=== PATIENT | female | born 1950 | race Caucasian/White ===

== ENCOUNTER 2019-09-29 15:13 | Outpatient (CLI) | payer MEDICARE, MEDICAID, SELFPAY ==
--- NOTE | 2019-09-29 15:31 | MM_ITS ---
WS: [id number] BILATERAL SCREENING DIGITAL MAMMOGRAM WITH CAD HISTORY: SCREENING COMPARISON: 08/22/2016, 08/08/2016 Bilateral CC and MLO views submitted. Computer aided detection analyzed. Breast composition: There are scattered areas of fibroglandular density. No suspicious masses, microc alcifications or architectural distortion. Biopsy clip 3:00 axis of the LEFT breast. The nodule is st ill evident with no increase in size. No suspicious masses or calcifications. MM/[place] [id number] IMPRESSION: BI-RADS: 2-Benign FOLLOW UP: 1 Year Follow-up
--- NOTE | 2019-09-29 16:05 | XR_ITS ---
WS: [id number] SCREENING DEXA SCAN [employer] CLINICAL INFORMATION: POSTMENOPAUSAL STATUS COMPARISON: September 29, 2019 FINDINGS: The L1-L4 bone mineral density measures 1.037 g/cm2. This corresponds to a T score score of -1.2 and Z score of 0.3. Left femoral neck bone mineral density measures 0.836 g/cm2. This corresponds to a T score of -1.4 an d Z score of 0.0. Right femoral neck bone mineral density measures 0.767 g/cm2. This corresponds to a T score -1.9of an d Z score of -0.5. Mean femoral neck bone mineral density measures 0.801 g/cm2. This corresponds to a T score of -1.6 an d Z score of -0.3. XR/XR DEXA axial skeleton* [id number] IMPRESSION: Osteopenia Patient's FRAX calculated 10 year probability for major osteoporotic fracture i s 11.5 % and osteoporotic hip fracture is 2.2%.
== END 2019-09-29 15:14 | disposition home or self-care (01) ==
PROVIDERS: PCP Electrodiagnostic Medicine; Visit Provider Electrodiagnostic Medicine
DX: Z12.31 Encounter for screening mammogram for malignant neoplasm of breast (principal); Z78.0 Asymptomatic menopausal state; M85.89 Other specified disorders of bone density and structure, multiple sites
CPT/HCPCS: 77067; 77080

== ENCOUNTER 2021-04-25 15:17 | Outpatient (CLI) | payer MEDICARE, MEDICAID, SELFPAY ==
--- NOTE | 2021-04-25 15:24 | MM_ITS ---
WS: [id number] SCREENING DIGITAL MAMMOGRAM WITH CAD HISTORY: SCREENING COMPARISON: 08/08/2016, 09/29/2019 Bilateral CC and MLO views submitted. Computer aided detection analyzed. Breast composition: There are scattered areas of fibroglandular density. There is a lobulated asymmet ry in the anterior to middle RIGHT breast lateral to the nipple. This has been present on prior studi es but appears slightly larger and more masslike today. Not definitely seen on the lateral projection . Biopsy clip in the LEFT breast at 9:00 with an adjacent mass. This mass is stable. Benign calcifica tions in each breast. MM/[place] [id number] IMPRESSION: BI-RADS: 0-Incomplete: Need additional imaging evaluation FOLLOW UP: Need Additional Imaging RIGHT breast: Spot compression views (CC and MLO). True ML. Ultrasound to follo w if abnormality persists.
== END 2021-04-25 15:18 | disposition home or self-care (01) ==
PROVIDERS: PCP Electrodiagnostic Medicine; Visit Provider Electrodiagnostic Medicine
DX: Z12.31 Encounter for screening mammogram for malignant neoplasm of breast (principal)
CPT/HCPCS: 77067

== ENCOUNTER 2021-05-08 07:42 | Outpatient (CLI) | payer MEDICARE, MEDICAID, SELFPAY ==
--- NOTE | 2021-05-08 07:48 | US_ITS ---
WS: [id number] ADDITIONAL VIEWS RIGHT BREAST RIGHT breast ultrasound, limited HISTORY: RIGHT BREAST MASS COMPARISON: 04/25/2021, 09/29/2019 and 08/08/2016 Compression views right CC and MLO projection. True ML also submitted. There are several asymmetries in the anterior RIGHT breast. These are predominantly posterior to the nipple and to the lateral aspe ct of the breast. Some of these are present on prior studies and some of these asymmetries correspond to moles. Very similar appearance as compared to the 2017 study. RIGHT breast ultrasound, limited ultrasound is directed to the upper outer quadrant of the RIGHT justo st at a anterior to middle depth. No suspicious masses are identified. No shadowing. US/US breast RT limited* [id number] IMPRESSION: BI-RADS: 3-Probably Benign FOLLOW-UP: 6 Month Follow-up The asymmetries are very minimally changed as compared to the prior examination s. I suspect this is probably due to different positioning. No abnormality was noted by ultrasound. Suggest 6 month follow-up of the RIGHT breast only and pos sible ultrasound if necessary after the mammogram. Continued evaluation for con firmation of stability.
== END 2021-05-08 07:43 | disposition home or self-care (01) ==
LOC: RADSHAW 07:45
PROVIDERS: PCP Electrodiagnostic Medicine; Visit Provider Electrodiagnostic Medicine
DX: N63.10 Unspecified lump in the right breast, unspecified quadrant (principal)
CPT/HCPCS: 76642; 77065

== ENCOUNTER 2021-12-12 10:15 | Outpatient (CLI) | payer MEDICARE, MEDICAID, SELFPAY ==
--- NOTE | 2021-12-12 10:24 | MM_ITS ---
WS: [id number] DIAGNOSTIC RIGHT DIGITAL TOMOSYNTHESIS MAMMOGRAPHY WITH CAD. HISTORY: Six-month follow-up Asymmetries seen on 04/25/2021. COMPARISON: 05/08/2021, 04/25/2021 and 09/29/2019 Technique: CC, MLO and ML views. Breast composition: There are scattered areas of fibroglandular density. The asymmetries in the ante rior RIGHT breast are much less conspicuous as compared to prior studies. There is no distortion. No persistent abnormality. MM/[place] [id number] IMPRESSION: BI-RADS: 2-Benign FOLLOW UP: See Report Return to annual screening mammography. The asymmetries have resolved and are l ess conspicuous.
== END 2021-12-12 10:16 | disposition home or self-care (01) ==
LOC: RAD 10:16
PROVIDERS: PCP Electrodiagnostic Medicine; Visit Provider Electrodiagnostic Medicine
DX: R92.8 Other abnormal and inconclusive findings on diagnostic imaging of breast (principal)
CPT/HCPCS: 77061

== ENCOUNTER 2024-01-23 11:09 | Inpatient (IN) | payer MEDICARE, MEDICAID, SELFPAY ==
[2024-01-23] VITALS (7 sets, daily range): BP systolic 93–145; BP diastolic 52–87; PULSE 68–98; RESP 16–18; TEMP 36.1–37; O2SAT 94–96; BMI 28.3
--- NOTE | 2024-01-23 11:39 | XR_ITS ---
WS: [id number] Portable AP upright chest, 01/23/2024 Clinical Data: weakness Comparison: Portable chest, 08/10/2017 Findings: No nodules, masses or effusions are seen. The heart is normal. The pulmonary vascularity is not increased. No pneumonia or pneumothorax is seen. The aortic arch and descending thoracic aorta s how tortuosity. The left diaphragm is elevated but unchanged. XR/XR chest 1V portable [id number] Impression: Atherosclerosis.
--- NOTE | 2024-01-23 11:39 | CT_ITS ---
WS: [email or web address] CT HEAD NONCONTRAST HISTORY: weakness TECHNIQUE: Contiguous axial imaging performed through the brain. Bone and soft tissue windows. Sagitt al and coronal reformats reviewed. All CT scans at [facility] use at least one of these dose optimization techniques: automated exposure control; mA and/or kV adjustment per patient size (includ es targeted exams where dose is matched to clinical indication); or iterative reconstruction. DLP: 1733.48 mGy.cm COMPARISON: 08/10/2017 No acute intracranial hemorrhage, midline shift or mass effect. Mild symmetric atrophy and small vessel disease. There are tiny lacunar infarcts at the rosales-white ma tter junction of the RIGHT frontal and parietal lobes which are unchanged. No large territory infarct . Ventricles: Normal size with no hydrocephalus. Paranasal sinuses: Secretions in the LEFT sphenoid sinus. Mastoid air cells: Well pneumatized. Calvarium and scalp: Skull is intact with no soft tissue edema or swelling. CT/CT head wo con* [id number] IMPRESSION: 1. No acute intracranial hemorrhage or edema. 2. Stable volume loss and atrophy and small vessel disease.
--- NOTE | 2024-01-23 11:39 | CT_ITS ---
WS: [id number] CT LUMBAR SPINE, noncontrast. HISTORY: fall TECHNIQUE: Contiguous 2.0 mm axial imaging are performed. Sagittal and coronal reformats are submitte d and reviewed. All CT scans at [facility] use at least one of these dose optimization techni ques: automated exposure control; mA and/or kV adjustment per patient size (includes targeted exams w here dose is matched to clinical indication); or iterative reconstruction. IV contrast: None DLP: 1733.48 mGy.cm COMPARISON: None available. Mild S shaped curvature lumbar spine and increased lordosis. Acute biconcave compression fracture of L1 without retropulsion. Fracture lines are noted extending v ertically and horizontally throughout the vertebral body. Approximately 30% loss of height. No additi onal acute fractures identified. Facet joints remain normally aligned. T12-L1: Partially calcified central disc protrusion. Mild encroachment upon the ventral thecal sac. M ild RIGHT subarticular recess and foraminal stenosis. L1-2: Mild facet arthritis. No stenosis. L2-3: Asymmetric disc bulging to the RIGHT. Broad-based RIGHT foraminal and extraforaminal disc protr usion. Disc encroaches upon the RIGHT lateral thecal sac. Mild central, RIGHT subarticular recess and bilateral foraminal stenosis. L3-4: Mild annular disc bulging with facet and ligamentum flavum hypertrophy. LEFT foraminal disc pro trusion. Mild central, bilateral subarticular recess and LEFT foraminal stenosis. L4-5: Diffuse annular disc bulging with osteophytic ridging and marked facet arthritis. Mild central, bilateral subarticular recess and neural foraminal stenosis. L5-S1: Osteophytic ridging. No significant stenosis. Aortic calcification. Incompletely visualized calcification in the LEFT upper abdomen may be associat ed with the adrenal gland. CT/CT lumbar spine wo con* [id number] IMPRESSION: 1. Acute biconcave L1 compression fracture by 30%. No retropulsion. No cord co mpression. 2. Multilevel areas of mild to moderate stenosis and facet joint arthritis. 3. No additional fractures.
--- NOTE | 2024-01-23 11:40 | ECG_ITS ---
[facility] Date: 2024-01[facility]23 Pat Name: Vania Sarkar Department: Room: Gender: Female [employer] Tender: : 1950 Requested By: Goldy Malave Order Number: [id number] Reading MD: HAJA RAMIREZ Measurements Intervals [place] Rate: 80 P: 77 IL: 148 QRS: 26 QRSD: 96 T: 38 QT: 388 QTc: 449 Interpretive Statements SINUS RHYTHM WITH SINUS ARRHYTHMIA MODERATE ST DEPRESSION [0.05+ mV ST DEPRESSION] Compared to ECG 08/10/2017 11:14:27 No significant changes Electronically Signed On 01-24-2024 18:10:37 CDT by HAJA RAMIREZ [email or web address]
--- NOTE | 2024-01-23 11:43 | ED_ITS ---
HPI - Fall 2 General: Chief Complaint: Fall Stated Complaint: Keeps falling down Time Seen by Provider: 01/23/24 11:28 Source: patient Mode of arrival: ambulatory Limitations: no limitations History of Present Illness: 73-year-old female's been having increas ing weakness specially last 2 days family states she has had multiple falls complaints of back pain from one of the falls. He states she is have a hard time ambulating due to her severe weakness denies any vomiting or diarrhea. Associated symptoms-after fall: Denies abdominal pain, chest pain, headache(s) or neck pain Related Data Home Medications Medication Instructions Recorded Confirmed atorvastatin 20 mg tablet 20 mg PO QPM 01/23/24 01/23/24 dapagliflozin propanediol 10 mg 10 mg PO DAILY 01/23/24 01/23/24 tablet (Farxiga) glimepiride 2 mg tablet 2 mg PO DAILY 01/23/24 01/23/24 metformin 1,000 mg tablet 1,000 mg PO BID 01/23/24 01/23/24 Allergies Allergy/AdvReac Type Severity Reaction Status Date / Time quinine Allergy ALGY-Rash Verified 01/23/24 11:27 Review of Systems 2 Const: Reports: fatigue; Denies: fever(s), chills, body aches or change in appetite Eyes: Denies: blurry vision or eye discomfort ENMT: Denies: throat pain or dental pain Card: Denies: chest pain Resp: Denies: dyspnea GI: Denies: abdominal pain, nausea, vomiting or diarrhea Musc: Reports: back pain; Denies: neck pain Skin/Breast: Denies: rash Neuro: Denies: headache(s) Physical Exam 2 Const: COMMON NORMALS: patient oriented x3 GENERAL APPEARANCE: ill appearing HENMT: COMMON NORMALS: normocephalic and atraumatic HEAD & SCALP: n ormocephalic and atraumatic Eye: COMMON NORMALS: Equal, round and reactive pupils present and EOMs intact bilaterally PUPIL: Yes Equal, round and reactive pupils present Neck/C-Spine: COMMON NORMALS: full ROM and supple Chest: COMMONS NORMALS: normal inspection of the chest and normal palpation of entire chest wall Resp: COMMON NORMALS: normal respiratory effort, No retractions, No use of accessory muscles and clear to auscultation bilaterally AUSCULTATION: clear to auscultation bilaterally Cardio: COMMON NORMALS: regular rate, regular rhythm and No murmurs present (Cardio) RATE: regular rate RHYTHM: regular rhythm GI: COMMON NORMALS: Normal to inspection, nondistended, normoactive bowel sounds present, Soft to palpation, non-tender and no masses PALPATION: Yes Soft to palpation Extremity: COMMON NORMALS: normal to inspection and full ROM Neuro: COMMON NORMALS: patient oriented x3, moves all extremities and no focal motor deficits Psych: COMMON NORMALS: mental status grossly normal, Normal thought process present and cooperative THOUGHT PROCESS: Normal thought process present Skin: COMMON NORMALS: no rashes or lesions noted and no wounds GENERAL SKIN EXAM: no rashes or lesions noted Course 2 Vital Signs: Vital signs: Vital Signs Temperature 96.9 F L 01/23/24 11:22 Pulse Rate 82 01/23/24 11:22 Respiratory Rate 17 01/23/24 11:22 Blood Pressure 109/55 01/23/24 11:22 MDM - Fall Medical Decision Making Patient presents here with weakness along with some slight confusion head CT here is normal she does have dehydration acute kidney injury UTI she has no signs of sepsis did give her antibiotics and fluids will admit at this time Medical Records I reviewed the patient's medical records. Lab Data I reviewed the patient's lab results. 01/23/24 11:49 01/23/24 11:49 Radiology Impressions Chest X-Ray 01/23/24 11:39 Impression: Atherosclerosis. Head CT 01/23/24 11:39 IMPRESSION: 1. No acute intracranial hemorrhage or edema. 2. Stable volume loss and atrophy and small vessel disease. Lumbar Spine CT 01/23/24 11:39 IMPRESSION: 1. Acute biconcave L1 compression fracture by 30%. No retropulsion. No cord compression. 2. Multilevel areas of mild to moderate stenosis and facet joint arthritis. 3. No additional fractures. Laboratory Results WBC 15.59 10^3/uL (3.29-11.43) H 01/23/24 11:49 RBC 5.30 10^6/uL (3.85-5.65) 01/23/24 11:49 Hgb 16.50 g/dL (11.27-16.99) 01/23/24 11:49 Hct 49.4 % (36-47) H 01/23/24 11:49 MCV 93.2 fl (85-98) 01/23/24 11:49 MCH 31.1 pg (27-33) 01/23/24 11:49 MCHC 33.4 g/dL (30-55) 01/23/24 11:49 RDW 13.0 % (12.1-15.1) 01/23/24 11:49 Plt Count 304 10^3/cmm (157-399) 01/23/24 11:49 MPV 9.6 fL (7.4-10.4) 01/23/24 11:49 Neut % (Auto) 90.3 % 01/23/24 11:49 Lymph % (Auto) 3.0 % 01/23/24 11:49 [place] % (Auto) 6.0 % 01/23/24 11:49 Eos % (Auto) 0.0 % 01/23/24 11:49 Baso % (Auto) 0.2 % 01/23/24 11:49 Neut # (Auto) 14.08 10^3/uL (1.8-7.7) H 01/23/24 11:49 Lymph # (Auto) 0.5 10^3/uL (0.8-4.8) L 01/23/24 11:49 [place] # (Auto) 0.9 10^3/uL (0.2-0.9) 01/23/24 11:49 Eos # (Auto) 0.0 10^3/uL (0.0-0.8) 01/23/24 11:49 Baso # (Auto) 0.0 10^3/uL (0.0-0.1) 01/23/24 11:49 Nucleated RBC % (auto) 0 % 01/23/24 11:49 Nucleated RBCs # 0.0 /100WBC 01/23/24 11:49 Sodium 135 mmol/L (136-145) L 01/23/24 11:49 Potassium 3.5 mmol/L (3.5-5.1) 01/23/24 11:49 Chloride 90 mmol/L (98-107) L 01/23/24 11:49 Carbon Dioxide 24 mmol/L (22-29) 01/23/24 11:49 Anion Gap 24.5 (5-19) H 01/23/24 11:49 BUN 96 mg/dL (8-23) H* 01/23/24 11:49 Creatinine 1.8 mg/dL (0.5-0.9) H 01/23/24 11:49 GFR Calculation Not Reportable 01/23/24 11:49 Glucose 207 mg/dL (65-115) H 01/23/24 11:49 Calculated Osmolality 316 mOsm/kg (285-295) H 01/23/24 11:49 Calcium 9.1 mg/dL (8.5-10.5) 01/23/24 11:49 Magnesium 2.2 mg/dL (1.7-2.3) 01/23/24 11:49 Total Bilirubin 0.8 mg/dL (0.15-1.2) 01/23/24 11:49 AST 23 U/L (0-32) 01/23/24 11:49 ALT 15 U/L (0-33) 01/23/24 11:49 Alkaline Phosphatase 129 U/L (35-105) H 01/23/24 11:49 NT-Pro-B Natriuret Pep 351 pg/mL (0-450) 01/23/24 11:49 Total Protein 7.8 g/dL (6.6-8.7) 01/23/24 11:49 Albumin 4.2 g/dL (3.5-5.2) 01/23/24 11:49 Globulin 3.6 g/dL (1.3-4.6) 01/23/24 11:49 TSH 1.37 uIU/mL (0.27-4.20) 01/23/24 11:49 Urine Color Yellow (Yellow) 01/23/24 13:01 Urine Appearance Cloudy (CLEAR) A 01/23/24 13:01 Urine pH 5.0 (5-7) 01/23/24 13:01 Ur Specific [place] 1.023 (1.005-1.030) 01/23/24 13:01 Urine Protein 1+ (Negative) A 01/23/24 13:01 Urine Glucose (UA) 3+ (Normal) H 01/23/24 13:01 Urine Ketones 1+ (Negative) H 01/23/24 13:01 Urine Blood Negative (Negative) 01/23/24 13:01 Urine Nitrate Negative (Negative) 01/23/24 13:01 Urine Bilirubin Negative (Negative) 01/23/24 13:01 Urine Urobilinogen 1.0 mg/dL (Negative) 01/23/24 13:01 Ur Leukocyte Esterase Trace (Negative) A 01/23/24 13:01 Urine RBC 0-2 /hpf (0-2) 01/23/24 13:01 Urine WBC 21-50 /hpf (0-5) H 01/23/24 13:01 Ur Squamous Epith Cells 6-10 /hpf (0-5) 01/23/24 13:01 Amorphous Sediment Not Reportable 01/23/24 13:01 Urine Bacteria 4+ /hpf (NONE) H 01/23/24 13:01 Hyaline Casts 18.18 /lpf 01/23/24 13:01 Urine Mucus Trace /hpf 01/23/24 13:01 All radiology interpretation(s) finalized by discharge Discharge Plan Discharge Patient Disposition: Admitted As Inpatient Clinical Impression: Acute kidney injury, Acute dehydration, Acute cystitis Condition: Stable Prescriptions: No Action atorvastatin 20 mg tablet 20 mg PO QPM glimepiride 2 mg tablet 2 mg PO DAILY metformin 1,000 mg tablet 1,000 mg PO BID dapagliflozin propanediol [Farxiga] 10 mg tablet 10 mg PO DAILY Referrals: Kyle Conrad DO [Primary Care Provider] - Coding Level of Care Code ED Registered Medical Transcriptionist for Juana Hagen
[2024-01-23 11:54] LABS: Basophils % 0.2 %; Hematocrit 49.4 % (36-47); Lymphocytes # 0.5 10^3/uL (0.8-4.8); Mean Corpuscular HGB Conc 33.4 g/dL (30-55); Mean Corpuscular Hemoglobin 31.1 pg (27-33); Mean Corpuscular Volume 93.2 fl (85-98); Mean Platelet Volume 9.6 fL (7.4-10.4); Monocytes # 0.9 10^3/uL (0.2-0.9); Neutrophils # 14.08 10^3/uL (1.8-7.7); Neutrophils % 90.3 %; Nucleated Red Blood Cells % 0 %; Platelet Count 304 10^3/cmm (157-399); White Blood Count 15.59 10^3/uL (3.29-11.43)
[2024-01-23 12:34] LABS: Alanine Aminotransferase 15 U/L (0-33); Albumin Level 4.2 g/dL (3.5-5.2); Alkaline Phosphatase 129 U/L (35-105); Anion Gap 24.5 (5-19); Aspartate Amino Transferase 23 U/L (0-32); Calcium 9.1 mg/dL (8.5-10.5); Carbon Dioxide 24 mmol/L (22-29); Chloride 90 mmol/L (98-107); Globulin 3.6 g/dL (1.3-4.6); Glucose 207 mg/dL (65-115); Magnesium 2.2 mg/dL (1.7-2.3); NT Pro B Type Natriuretic Pept 351 pg/mL (0-450); Osmolality Calculated 316 mOsm/kg (285-295); Potassium 3.5 mmol/L (3.5-5.1); Sodium 135 mmol/L (136-145); Thyroid Stimulating Hormone 1.37 uIU/mL (0.27-4.20); Total Bilirubin 0.8 mg/dL (0.15-1.2); Total Protein 7.8 g/dL (6.6-8.7)
[2024-01-23 12:35] LABS: Blood Urea Nitrogen 96 mg/dL (8-23)
[2024-01-23] MEDS: sodium chloride 0.9% 1,000 ML 999 ML IV (13:00)
[2024-01-23 13:11] LABS: Bilirubin Urine Negative (Negative); Blood Urine Negative (Negative); Glucose Urine UA 3+ (Normal); Ketones Urine 1+ (Negative); Leukocyte Esterase Urine Trace (Negative); Nitrate Urine Negative (Negative); Protein Urine 1+ (Negative); Specific Gravity, Urine 1.023 (1.005-1.030); Urine Appearance Cloudy (CLEAR); Urine Color Yellow (Yellow)
[2024-01-23 13:14] LABS: Add Urine Microscopic? YES; Bacteria Urine 4+ /hpf; Hyaline Casts Urine 18.18 /lpf; RBC Urine 0-2 /hpf (0-2); WBC Urine 21-50 /hpf (0-5)
[2024-01-23 13:25] LABS: Add Urine Culture? Yes; Mucus Urine TRACE /hpf; UA Slide Review UA Slide Review Perf
--- NOTE | 2024-01-23 13:52 | CT_ITS ---
WS: [id number] CT ABDOMEN AND PELVIS NONCONTRAST HISTORY: rhiannon, ?obs nephropathy TECHNIQUE: Imaging performed through the abdomen and pelvis. Coronal and sagittal reformats are submi tted. All CT scans at [facility] use at least one of these dose optimization techniques: auto mated exposure control; mA and/or kV adjustment per patient size (includes targeted exams where dose is matched to clinical indication); or iterative reconstruction. DLP: 443.67 mGy.cm COMPARISON: None available. Lower thorax: Hyperexpanded lung bases. Bilateral lower lobe calcifications. Normal size heart. Liver: Normal size liver. No mass or bile duct dilatation. Gallbladder: Normal gallbladder. No pericholecystic fluid or cholelithiasis. No gallbladder wall thic kening. Pancreas: Normal size and attenuation. Normal pancreatic duct. No pancreatitis or mass. Spleen: Normal. Adrenal glands: Normal. No mass. Right kidney: Mild atrophy. No obstruction. Left kidney: Mild atrophy with no obstruction. Low-attenuation masses within the LEFT kidney cannot b e further characterized. There is no obstruction. Aorta: Mild atherosclerosis abdominal aorta with no aneurysm. Irregular curvilinear calcification in the LEFT upper abdomen measures 11 mm. This is probably a small calcified splenic artery aneurysm. No free fluid, intraperitoneal air or significant lymphadenopathy. GI tract: Normal noncontrast imaging of the stomach, small bowel and colon. No obstruction or wall th ickening. Normal appendix. Abdominal wall: Negative. No hernia. Pelvis: No free fluid. Nondistended urinary bladder. Mckinley catheter is present in the urinary bladder . There is also small amount of air in the bladder from the catheter placement. Osseous structures: Reidentified is the acute biconcave L1 compression fracture without retropulsion. CT/CT abdomen pelvis wo con [id number] IMPRESSION: 1. No acute abdominal or pelvic abnormalities. 2. No renal obstruction. 3. 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 4. Atherosclerosis aorta, mild. 5. No ascites or adenopathy. 6. Indeterminate LEFT renal masses. Cannot be further characterized without IV contrast.
--- NOTE | 2024-01-23 13:54 | P.HP_ITS ---
Providers/Chief Complaint 2 Primary Care Provider: Kyle Conrad DO Chief Complaint: Keeps falling down History of Present Illness Vania Sarkar is a 73 year old female with past medical history of hypertension not on antihypertensive because of hypotension and presyncope, type 2 diabetes mellitus was brought in today by her son because of recurrent episodes of fall, confusion specially on standing up from sitting position worsening over last few weeks. As per the son patient has had multiple falls recently. Patient has been having diarrhea as well for last few weeks which has been getting worse. Patient lives with her son. On examination is laying comfortably in bed with some forgetfulness but no current confusion, slow to respond but patient is alert and oriented to self, being in the hospital, year, address, date of , son's name but not sure why she is in the hospital. She denies any nausea, vomiting, headache, abdominal pain but does complain of occasional dysuria. As per the nursing staff in the ER on going from bed to the toilet she did have episode of dizziness and confusion. Review of Systems 2 General: Reports: 10 or more systems reviewed and unremarkable except in HPI and below Const: Denies: fever(s), chills, body aches, change in appetite, change in weight, malaise, night sweats, diaphoresis, change in sleep pattern, daytime sleepiness or snoring Eyes: Denies: change in vision, blurry vision, photophobia, eye discomfort or eye discharge ENMT: Denies: throat pain, enlarged tonsils, hoarseness, mouth pain, oral sores, dry mouth, tinnitus, nasal congestion or post nasal drip Card: Denies: chest pain, palpitations, irregular heart rhythm, edema, swelling of feet/ankles, lightheadedness, syncope, pre-syncope, dyspnea on exertion, orthopnea, leg pain with exertion or acrocyanosis Resp: Denies: dyspnea, productive cough, non-productive cough, wheezing, stridor, pain on inspiration, change in phlegm color, hemoptysis or chest congestion GI: Denies: abdominal pain, nausea, vomiting, hematemesis, coffee ground emesis, dysphagia, heartburn, diarrhea, constipation, bloating, GI cramping, change in bowel habits, pain on defecation, hematochezia or melena : Denies: flank pain, dysuria, urinary frequency, urinary urgency, urinary hesitancy, nocturia or hematuria Musc: Denies: neck pain, back pain, extremity pain, joint pain, joint swelling, joint redness, joint stiffness or limited range of motion Neuro: Denies: headache(s), numbness in extremities, weakness in extremities, sensory changes, lack of coordination, difficulty walking, frequent falls, dizziness, vertigo, confusion, Slurred speech present, difficulty communicating thoughts or seizure-like activity Psych: Denies: anxiety, depression, mood swings, panic attacks, hopelessness or irritability Endo: Denies: polyuria, polydipsia, tired all the time, cold intolerance, excessive sweating, flushing or heat intolerance Toan/Lymph: Denies: easy bruising or easy bleeding All/Imm: Denies: tongue swelling, facial swelling or acute wheezing Medications/Allergies Home Medications Medication Instructions Recorded Confirmed Last Taken Type atorvastatin 20 mg tablet 20 mg PO QPM 01/23/24 01/23/24 01/22/24 History dapagliflozin propanediol 10 mg 10 mg PO DAILY 01/23/24 01/23/24 01/22/24 History tablet (Farxiga) glimepiride 2 mg tablet 2 mg PO DAILY 01/23/24 01/23/24 01/22/24 History metformin 1,000 mg tablet 1,000 mg PO BID 01/23/24 01/23/24 01/22/24 History Allergies Allergy/AdvReac Type Severity Reaction Status Date / Time quinine Allergy ALGY-Rash Verified 01/23/24 11:27 PFSH Acute 2 PFSH: Medical History (Updated 01/23/24 @ 16:23 by Adolfo Adrian MD) Hypotension Hypertension Type 2 diabetes mellitus Social History (Updated 01/23/24 @ 16:23 by Adolfo Adrian MD) Smoking and tobacco/nicotine status: former use of tobacco/nicotine Alcohol intake: never Substance/Drug Use: never Caregiver/support person: Yes Lives independently: Yes Household members: family and children Housing: House Marital status: / Vitals/I&O/Wt Last Vital Signs Temp 96.9 F L 01/23/24 11:22 Pulse 82 01/23/24 11:22 Resp 17 01/23/24 11:22 BP 109/55 10/18/24 11:22 Weight last 48 hrs Weight 70.307 kg Physical Exam 2 Narrative: General: No acute distress, AO x3, dehydrated, forgetful HEENT: PERRLA, pupils bilaterally equal and reactive Chest: Normal vesicular breath sounds, no added sounds, equal good air entry bilaterally CVS: S1-S2 regular, no murmurs, no tachycardia, no gallops, no rubs Abdomen: Soft, nontender, no organomegaly, bowel sounds present, redness and periumbilical region Neuro: No focal deficits, no facial deformity, AO x3, power 5/5 in all limbs Data 01/23/24 11:49 01/23/24 11:49 A&P Assessment and plan (1) Fall: (2) Pre-syncope: (3) Acute dehydration: (4) Acute cystitis: (5) Acute kidney injury: (6) Type 2 diabetes mellitus: Plan 73-year-old female with history of hypertension, diabetes mellitus for whom antihypertensives were discontinued almost a year ago because of episodes of hypotension presents to the hospital with recurrent falls and dizziness on standing up with episodes of dysuria with possibility of episodes of diarrhea found to have acute kidney injury and uremia. Recurrent falls: Most likely in setting of UTI along with dehydration leading to episodes of presyncope and possible orthostatic hypotension. Check orthostatics. Physical therapy. Fall precaution. Check B12, folate, iron panel, TSH, cortisol level. Acute dehydration: Most likely in setting of poor oral intake. Start on IV fluids with normal saline at 75 cc/h. UTI: Symptoms of dysuria. UA consistent with UTI. No signs of sepsis Check procalcitonin, blood culture, urine culture, MRSA swab, lactate. Given concerns for diarrhea with possible cellulitis in periumbilical region for now we will switch to Zosyn from ceftriaxone. De-escalate as per culture studies. LUKE: Associated with uremia: Check urine lites, urine creatinine. CT abdomen pelvis to rule out obstructive nephropathy. Monitor BMP daily. IV fluid as above. Medical reconciliation done for nephrotoxic drugs. Questionable history of diarrhea: Could be in setting of metformin. Cannot rule out infectious cause. Stool studies if patient have diarrhea. For now continue with ceftriaxone as above. Cellulitis: Present in periumbilical region. Antibiotic as above. Nystatin powder. High anion gap metabolic acidosis: Patient does have history of type 2 diabetes mellitus with elevated blood sugars on presentation. DKA less likely though. Check ketones. If ketones are positive we will start on treatment for DKA. Type 2 diabetes mellitus: Hold of OHA. Sliding scale low-dose protocol. Check A1c. Hypertension: Goal blood pressure less than 140/90 mmHg. Concern for positive orthostatics. Check orthostatic every shift for now. Hold off on antihypertensive. CODE STATUS: Son will be the DPOA. Full code. Protonix OPD prophylaxis Heparin 5000 every 12 hourly for DVT prophylaxis Carb consistent diet Discharge plan: Discussed in detail with the patient and son over the phone. Patient would like to go back home if possible and would want to avoid sleep as much as possible. Will plan as per PT evaluation and clinical improvement during the course. Attestations 2 Medical Necessity Statement*: Admission for more than 2 midnights for management of weakness, presyncope leading to recurrent falls in setting of dehydration, acute kidney injury, UTI Diagnoses Fall [id number].XXXA Pre-syncope R55 Acute dehydration E86.0 Acute cystitis N30.00 Acute kidney injury N17.9 Type 2 diabetes mellitus E11.9
[2024-01-23 14:12] LABS: Amphetamines Screen Urine Negative (Negative); Barbiturates Screen Urine Negative (Negative); Benzodiazepines Screen Urine Negative (Negative); Cocaine Screen Urine Negative (Negative); Opiate Screen Urine Negative (Negative); PCP Screen Urine Negative (Negative); THC Screen Urine Negative (Negative)
[2024-01-23 14:19] LABS: Ketone (Acetest) Serum Negative (Negative)
[2024-01-23] MEDS: pantoprazole 40 mg SDV IVP (14:19)
[2024-01-23] MEDS: cefTRIAXone 1,000 mg SDV 1000 MG IVP (14:19)
[2024-01-23 14:21] LABS: Potassium, Radom Urine 44 mmol/L; Urine Random Chloride 18 mmol/L; Urine Random Sodium 18 mmol/L
[2024-01-23] MEDS: sodium chloride 0.9% 1,000 ML 75 ML IV (14:21)
[2024-01-23 14:29] LABS: Iron 109 ug/dL (37-145); Percent Saturation 33.8 % (20-50); Total Iron Binding Capacity 322 mcg/dl; Unsaturated Iron Binding 213 ug/dL (112-347)
[2024-01-23 14:46] LABS: Procalcitonin 0.12 ng/mL (0-0.5); Vitamin B12 364 pg/mL (232-1245)
[2024-01-23 16:16] LABS: Lactic Sepsis W/Reflex 1.3 mmol/L (0.5-2.2)
[2024-01-23] MEDS: heparin 5,000 unit/mL INJ 1 mL 5000 UNIT SUBCUT (16:26)
[2024-01-23 17:46] LABS: Glucose Point of Care 199 mg/dL (70-110)
[2024-01-23] MEDS: piperacillin-tazobactam 3.375 GM in sodium chloride 0.9% (plus) 50 ML IV (17:50)
[2024-01-23] MEDS: nystatin powder 30 gm Btl 1 APPLIC TOPICAL (17:50)
[2024-01-23] MEDS: insulin lispro 100 unit/1 mL SUBCUT ×2 (17:51→21:08)
[2024-01-23 17:56] LABS: MRSA PCR OZH (swab) NOT DETECTED (Not Detecte)
[2024-01-23 18:57] LABS: Urine Creatinine 136 mg/dL (28-217)
[2024-01-23 19:16] LABS: Eosinophil Urine No Eosinophils Seen; Urine Eosinophil Count 0 (0-0)
[2024-01-23 20:41] LABS: Glucose Point of Care 314 mg/dL (70-110)
[2024-01-24] VITALS (7 sets, daily range): BP systolic 96–134; BP diastolic 52–81; PULSE 71–96; RESP 16–18; TEMP 36.6–37.1; O2SAT 92–96; BMI 26.1
[2024-01-24] MEDS: piperacillin-tazobactam 3.375 GM in sodium chloride 0.9% (plus) 50 ML IV ×3 (01:15→16:42)
[2024-01-24] MEDS: heparin 5,000 unit/mL INJ 1 mL 5000 UNIT SUBCUT ×2 (03:51→14:22)
[2024-01-24 05:51] LABS: Basophils % 0.2 %; Eosinophils % 0.1 %; Hematocrit 46.5 % (36-47); Lymphocytes # 0.8 10^3/uL (0.8-4.8); Lymphocytes % 8.3 %; Mean Corpuscular HGB Conc 32.9 g/dL (30-55); Mean Corpuscular Hemoglobin 30.8 pg (27-33); Mean Corpuscular Volume 93.8 fl (85-98); Mean Platelet Volume 10.5 fL (7.4-10.4); Monocytes # 0.9 10^3/uL (0.2-0.9); Monocytes % 9.1 %; Neutrophils # 7.88 10^3/uL (1.8-7.7); Neutrophils % 81.7 %; Nucleated Red Blood Cells % 0 %; Platelet Count 249 10^3/cmm (157-399); Red Blood Count 4.96 10^6/uL (3.85-5.65); White Blood Count 9.65 10^3/uL (3.29-11.43)
[2024-01-24 06:10] LABS: Estmated Average Glucose 148; Hemoglobin A1C 6.8 % (4.0-6.0)
[2024-01-24 06:19] LABS: Alanine Aminotransferase 16 U/L (0-33); Alkaline Phosphatase 115 U/L (35-105); Calcium 8.6 mg/dL (8.5-10.5); Carbon Dioxide 27 mmol/L (22-29); Chloride 99 mmol/L (98-107); Chol HDL Ratio 2.76 mg/dL (0.0-4.40); Cholesterol 171 mg/dL (0-200); Creatinine Clr Calc Pharmacy 28.6232; Globulin 2.9 g/dL (1.3-4.6); Glucose 69 mg/dL (65-115); HDL Cholesterol 62 mg/dL (60-100); LDL Cholesterol Calculated 67 mg/dL (50-129); LDL HDL Ratio 1.08 RATIO (0.00-3.22); Magnesium 2.3 mg/dL (1.7-2.3); Osmolality Calculated 319 mOsm/kg (285-295); Phosphorus 2.9 mg/dL (2.5-4.5); Procalcitonin 0.11 ng/mL (0-0.5); Sodium 141 mmol/L (136-145); Total Bilirubin 0.7 mg/dL (0.15-1.2); Total Protein 6.9 g/dL (6.6-8.7); Triglycerides 208 mg/dL (0-150)
[2024-01-24 06:22] LABS: Aspartate Amino Transferase 24 U/L (0-32)
[2024-01-24 06:26] LABS: Blood Urea Nitrogen 92 mg/dL (8-23)
[2024-01-24 06:27] LABS: Folate Level 15.5 ng/mL (4.8-37.3)
[2024-01-24 06:34] LABS: Glucose Point of Care 93 mg/dL (70-110)
[2024-01-24 06:47] LABS: Cortisol Random 25.55 ug/dL (2.47-19.5)
[2024-01-24] MEDS: sodium chloride 0.9% 1,000 ML 75 ML IV ×2 (08:03→16:42)
[2024-01-24] MEDS: nystatin powder 30 gm Btl 1 APPLIC TOPICAL ×2 (08:03→16:42)
--- NOTE | 2024-01-24 09:44 | PC.NURSE ---
Pt states that she is in pain, but unable to rate it using a numerical scale. FACES SCALE 4 with movement. Pt denies need for pain medication.
[2024-01-24 11:53] LABS: Glucose Point of Care 265 mg/dL (70-110)
[2024-01-24] MEDS: insulin lispro 100 unit/1 mL SUBCUT ×2 (12:15→20:54)
[2024-01-24] MEDS: acetaminophen 325 mg Tablet 650 MG PO (12:15)
--- NOTE | 2024-01-24 13:33 | P.PN_ITS ---
Subjective 2 Subjective: No acute vents overnight. Today morning seen sitting up in chair. Patient denies any nausea, ting, headache. Looks slightly confused. Alert and oriented to self, being in the hospital, year.-Nursing staff having episodes of confusion on and off overnight. Vitals/I&O/Wt Last Vital Signs Temp 98.0 F 01/24/24 11:38 Pulse 74 01/24/24 11:38 Resp 16 01/24/24 11:38 BP 121/66 01/24/24 11:38 Pulse Ox 92 01/24/24 11:38 O2 Del Method Room Air 01/24/24 11:38 01/23/24 01/24/24 01/24/24 22:59 06:59 14:59 Intake Total 1530 / 1530 1530 / 3060 290 / 290 Output Total 500 / 500 200 / 700 Balance 1030 / 1030 1330 / 2360 290 / 290 Weight last 48 hrs Weight 64.728 kg Weight 64.728 kg Weight 70.307 kg Weight 70.307 kg Physical Exam 2 Narrative: General: No acute distress, AO x3, dehydrated, forgetful HEENT: PERRLA, pupils bilaterally equal and reactive Chest: Normal vesicular breath sounds, no added sounds, equal good air entry bilaterally CVS: S1-S2 regular, no murmurs, no tachycardia, no gallops, no rubs Abdomen: Soft, nontender, no organomegaly, bowel sounds present, redness and periumbilical region Neuro: No focal deficits, no facial deformity, AO x3, power 5/5 in all limbs Urinary Catheter Management: Mckinley: Cath Placed During This Visit: yes Reason for Continuing Indwelling Catheter: Other Urinary Catheter Date of Insertion: 01/23/24 Data 01/24/24 04:46 01/24/24 04:46 Micro: Microbiology 01/23/24 13:01 Urine Culture - Preliminary Urine,Clean Catch Gram Negative Rods 01/23/24 15:52 Blood Culture - Preliminary Blood SPECIMEN COLLECTED 01/23/24 15:50 Blood Culture - Preliminary Blood SPECIMEN COLLECTED 01/23/24 13:01 Bacterial Antigens - Final Urine Kidney A&P Assessment and plan (1) Fall: (2) Pre-syncope: (3) Acute dehydration: (4) Acute cystitis: (5) Acute kidney injury: (6) Type 2 diabetes mellitus: (7) Cognitive decline: Plan 73-year-old female with history of hypertension, diabetes mellitus for whom antihypertensives were discontinued almost a year ago because of episodes of hypotension presents to the hospital with recurrent falls and dizziness on standing up with episodes of dysuria with possibility of episodes of diarrhea found to have acute kidney injury and uremia. Recurrent falls: Most likely in setting of UTI along with dehydration leading to episodes of presyncope and possible orthostatic hypotension. Orthostatic so far negative. Continue to check every shift Physical therapy. Fall precaution. Appreciate B12, folate, iron panel, TSH, cortisol level. Acute dehydration: Most likely in setting of poor oral intake. Improving. Continue with IV fluids with normal saline at 75 cc/h. UTI: Symptoms of dysuria. UA consistent with UTI. No signs of sepsis Appreciate procalcitonin, MRSA swab negative. Follow-up blood culture, urine culture. Given concerns for diarrhea with possible cellulitis in periumbilical region for now we will continue with IV Zosyn. De-escalate as per culture results. LUKE: Associated with uremia: Improving. Creatinine down to 1.5. BUN slightly improving to 92. Appreciate urine lites, urine creatinine. CT abdomen pelvis to rule out obstructive nephropathy. Monitor BMP daily. IV fluid as above. Medical reconciliation done for nephrotoxic drugs. Does have hypokalemia today. Replace with 40 mg oral. Questionable history of diarrhea: No diarrhea since admission for now. Continue to monitor. Could be in setting of metformin. Cannot rule out infectious cause. Stool studies if patient have diarrhea. For now continue with ceftriaxone as above. Cellulitis: Present in periumbilical region. Antibiotic as above. Nystatin powder. High anion gap metabolic acidosis: Resolved. Patient does have history of type 2 diabetes mellitus with elevated blood sugars on presentation. Most likely in setting of dehydration. DKA less likely though. Ketones negative. Type 2 diabetes mellitus: Hold of OHA. Sliding scale low-dose protocol. A1c 6.8. Hypertension: Goal blood pressure less than 140/90 mmHg. Concern for positive orthostatics. Check orthostatic every shift for now. Hold off on antihypertensive. CODE STATUS: Son will be the DPOA. Full code. Protonix OPD prophylaxis Heparin 5000 every 12 hourly for DVT prophylaxis Carb consistent diet Appreciate Occupational Therapy recommendation and evaluation. Patient found to have cognitive decline. Discharge plan: Patient lives with her son. Son is also the DPOA. Discussed in detail with the patient and son over the phone. Patient would like to go back home if possible and would want to avoid sleep as much as possible. Will plan as per PT evaluation and clinical improvement during the course. Attestations 2 Medical Necessity Statement*: Requires further hospitalization for management of recurrent falls in setting of weakness in setting of UTI and poor oral intake leading to LUKE and uremia Diagnoses Fall [id number].XXXA Pre-syncope R55 Acute dehydration E86.0 Acute cystitis N30.00 Acute kidney injury N17.9 Type 2 diabetes mellitus E11.9 Cognitive decline R41.89
[2024-01-24] MEDS: pantoprazole 40 mg SDV IVP (14:22)
[2024-01-24] MEDS: potassium chloride ER 20 mEq Tablet 40 MEQ PO (14:22)
[2024-01-24 16:19] LABS: Glucose Point of Care 101 mg/dL (70-110)
[2024-01-24 20:39] LABS: Glucose Point of Care 306 mg/dL (70-110)
[2024-01-25] VITALS (8 sets, daily range): BP systolic 127–176; BP diastolic 62–78; PULSE 64–76; RESP 15–17; TEMP 36.4–37.1; O2SAT 94–97; BMI 26.7
[2024-01-25] MEDS: piperacillin-tazobactam 3.375 GM in sodium chloride 0.9% (plus) 50 ML IV ×3 (01:03→17:46)
[2024-01-25] MEDS: sodium chloride 0.9% 1,000 ML 75 ML IV ×2 (04:56→17:45)
[2024-01-25] MEDS: heparin 5,000 unit/mL INJ 1 mL 5000 UNIT SUBCUT ×2 (04:57→14:36)
[2024-01-25 06:21] LABS: Glucose Point of Care 99 mg/dL (70-110)
[2024-01-25 06:53] LABS: Basophils % 0.2 %; Eosinophils % 0.7 %; Hematocrit 39.6 % (36-47); Lymphocytes # 0.7 10^3/uL (0.8-4.8); Lymphocytes % 11.8 %; Mean Corpuscular HGB Conc 31.8 g/dL (30-55); Mean Corpuscular Hemoglobin 30.5 pg (27-33); Mean Corpuscular Volume 95.9 fl (85-98); Monocytes # 0.6 10^3/uL (0.2-0.9); Monocytes % 9.6 %; Neutrophils # 4.57 10^3/uL (1.8-7.7); Neutrophils % 77.2 %; Nucleated Red Blood Cells % 0 %; Platelet Count 186 10^3/cmm (157-399); Red Blood Count 4.13 10^6/uL (3.85-5.65); Red Cell Distribution Width 12.9 % (12.1-15.1); White Blood Count 5.92 10^3/uL (3.29-11.43)
[2024-01-25 07:21] LABS: Alanine Aminotransferase 13 U/L (0-33); Albumin Level 3.1 g/dL (3.5-5.2); Alkaline Phosphatase 86 U/L (35-105); Anion Gap 11.6 (5-19); Aspartate Amino Transferase 17 U/L (0-32); Blood Urea Nitrogen 53 mg/dL (8-23); Calcium 7.8 mg/dL (8.5-10.5); Carbon Dioxide 24 mmol/L (22-29); Chloride 110 mmol/L (98-107); Creatinine Clr Calc Pharmacy 48.2544; Globulin 2.3 g/dL (1.3-4.6); Glucose 106 mg/dL (65-115); Osmolality Calculated 309 mOsm/kg (285-295); Potassium 3.6 mmol/L (3.5-5.1); Sodium 142 mmol/L (136-145); Total Bilirubin 0.6 mg/dL (0.15-1.2); Total Protein 5.4 g/dL (6.6-8.7)
[2024-01-25] MEDS: nystatin powder 30 gm Btl 1 APPLIC TOPICAL ×2 (08:27→17:45)
[2024-01-25 10:55] LABS: Glucose Point of Care 211 mg/dL (70-110)
[2024-01-25] MEDS: insulin lispro 100 unit/1 mL SUBCUT ×2 (12:08→20:22)
--- NOTE | 2024-01-25 14:07 | P.PN_ITS ---
Subjective 2 Subjective: No acute events overnight. Today morning seen laying comfortably in bed. Denies any nausea, vomiting, headache. Having occasional episodes of confusion. Blood pressure slightly elevated. Remains on room air. Afebrile. Vitals/I&O/Wt Last Vital Signs Temp 97.6 F 01/25/24 11:51 Pulse 72 01/25/24 11:51 Resp 16 01/25/24 04:00 BP 170/76 01/25/24 11:51 Pulse Ox 97 01/25/24 11:51 O2 Del Method Room Air 01/25/24 04:00 01/24/24 01/25/24 01/25/24 22:59 06:59 14:59 Intake Total 938.75 / 1468.75 967.5 / 2436.25 530 / 530 Output Total 1700 / 1700 400 / 2100 800 / 800 Balance -761.25 / -231.25 567.5 / 336.25 -270 / -270 Weight last 48 hrs Weight 66.338 kg Weight 66.338 kg Weight 64.728 kg Weight 64.728 kg Weight 70.307 kg Physical Exam 2 Narrative: General: No acute distress, AO x3, forgetful HEENT: PERRLA, pupils bilaterally equal and reactive Chest: Normal vesicular breath sounds, no added sounds, equal good air entry bilaterally CVS: S1-S2 regular, no murmurs, no tachycardia, no gallops, no rubs Abdomen: Soft, nontender, no organomegaly, bowel sounds present, redness and periumbilical region Neuro: No focal deficits, no facial deformity, AO x3, power 5/5 in all limbs Urinary Catheter Management: Mckinley: Cath Placed During This Visit: yes, but has since been removed by the nurse Reason for Continuing Indwelling Catheter: Other Urinary Catheter Date of Insertion: 01/23/24 Date Urinary Catheter Removed: 01/25/24 Time Urinary Catheter Discontinued: 12:27 Data 01/25/24 05:51 01/25/24 05:51 Micro: Microbiology 01/23/24 15:52 Blood Culture - Preliminary Blood NEGATIVE TO DATE 01/23/24 15:50 Blood Culture - Preliminary Blood NEGATIVE TO DATE 01/23/24 13:01 Urine Culture - Preliminary Urine,Clean Catch Gram Negative Rods A&P Assessment and plan (1) Fall: (2) Pre-syncope: (3) Acute dehydration: (4) Acute cystitis: (5) Acute kidney injury: (6) Type 2 diabetes mellitus: (7) Cognitive decline: Plan 73-year-old female with history of hypertension, diabetes mellitus for whom antihypertensives were discontinued almost a year ago because of episodes of hypotension presents to the hospital with recurrent falls and dizziness on standing up with episodes of dysuria with possibility of episodes of diarrhea found to have acute kidney injury and uremia. Recurrent falls: Most likely in setting of UTI along with dehydration leading to episodes of presyncope and possible orthostatic hypotension. Orthostatic so far negative. Continue to check every shift Physical therapy. Fall precaution. Appreciate B12, folate, iron panel, TSH, cortisol level. Acute dehydration: Most likely in setting of poor oral intake. Improving. Continue with IV fluids with normal saline at 75 cc/h. UTI: Symptoms of dysuria. UA consistent with UTI. No signs of sepsis Appreciate procalcitonin, MRSA swab negative. Follow-up blood culture, urine culture. Given concerns for diarrhea with possible cellulitis in periumbilical region for now we will continue with IV Zosyn. De-escalate as per culture results. LUKE: Associated with uremia: Improving. Creatinine down to 1.5. BUN slightly improving to 92. Appreciate urine lites, urine creatinine. CT abdomen pelvis to rule out obstructive nephropathy. Monitor BMP daily. IV fluid as above. Medical reconciliation done for nephrotoxic drugs. Does have hypokalemia today. Replace with 40 mg oral. Questionable history of diarrhea: No diarrhea since admission for now. Continue to monitor. Could be in setting of metformin. Cannot rule out infectious cause. Stool studies if patient have diarrhea. For now continue with ceftriaxone as above. Cellulitis: Present in periumbilical region. Antibiotic as above. Nystatin powder. High anion gap metabolic acidosis: Resolved. Patient does have history of type 2 diabetes mellitus with elevated blood sugars on presentation. Most likely in setting of dehydration. DKA less likely though. Ketones negative. Type 2 diabetes mellitus: Hold of OHA. Sliding scale low-dose protocol. A1c 6.8. Hypertension: Goal blood pressure less than 140/90 mmHg. Concern for positive orthostatics. Check orthostatic every shift for now. Hold off on antihypertensive. CODE STATUS: Son will be the DPOA. Full code. Protonix OPD prophylaxis Heparin 5000 every 12 hourly for DVT prophylaxis Carb consistent diet Appreciate Occupational Therapy recommendation and evaluation. Patient found to have significant cognitive decline. Discharge plan: Patient lives with her son. Son is also the DPOA. Discussed in detail with the patient and son over the phone. Patient would like to go back home if possible and would want to avoid sleep as much as possible. Will plan as per PT evaluation and clinical improvement during the course. Plan for the day: Follow-up urine culture. Blood cultures so far negative. MRSA swab negative. Continue with IV Zosyn for now. De-escalate as per culture results. Electrolytes stable. Creatinine normal now. BUN trending down. Continue with IV fluids at 75 cc for now. Monitor urine output. DC Mckinley catheter. Goal blood pressure less than 140/90 mmHg. Blood pressures elevated. Add amlodipine 5 mg oral daily. Uptitrate as her goal blood pressures. A1c 6.8. Continue with sliding scale. Most likely will need to modify oral hypoglycemics on discharge. Awaiting physical therapy evaluation and discharge planning. Attestations 2 Medical Necessity Statement*: Requires further hospitalization for management of dehydration leading to acute kidney injury, UTI leading to weakness and confusion in the elderly with concerns for cognitive dysfunction while safe discharge planning is sought. Diagnoses Fall [id number].XXXA Pre-syncope R55 Acute dehydration E86.0 Acute cystitis N30.00 Acute kidney injury N17.9 Type 2 diabetes mellitus E11.9 Cognitive decline R41.89
[2024-01-25] MEDS: pantoprazole 40 mg SDV IVP (14:36)
[2024-01-25] MEDS: amlodipine 5 mg Tablet PO (14:36)
[2024-01-25 16:46] LABS: Glucose Point of Care 131 mg/dL (70-110)
[2024-01-25 17:37] LABS: Blood Urea Nitrogen 14 mg/dL (8-23); Calcium 8.2 mg/dL (8.5-10.5); Carbon Dioxide 21 mmol/L (22-29); Chloride 107 mmol/L (98-107); Creatinine Clr Calc Pharmacy 54.2862; Glucose 135 mg/dL (65-115); Osmolality Calculated 291 mOsm/kg (285-295); Sodium 139 mmol/L (136-145)
--- NOTE | 2024-01-25 18:23 | PC.NURSE ---
Pt has bouts of extreme confusion this shift. Pt takes out IVs, gets self dressed, and hallucinates that her son is here to get her. Redirected multiple times. Family confirms that pt hallucinates and has bouts of confusion at home as well. Dr. Adrian notified. Rounding on pt increases in frequency. New IV placed in right upper arm. Tolerates well.
[2024-01-25 20:20] LABS: Glucose Point of Care 322 mg/dL (70-110)
[2024-01-26] VITALS: BP 93/55; PULSE 66; RESP 18; O2SAT 96
[2024-01-26] MEDS: piperacillin-tazobactam 3.375 GM in sodium chloride 0.9% (plus) 50 ML IV ×2 (02:01→08:41)
[2024-01-26 04:00] VITALS: BP 122/70; BP 122/75; PULSE 50; RESP 16; RESP 18; O2SAT 95
[2024-01-26] MEDS: heparin 5,000 unit/mL INJ 1 mL 5000 UNIT SUBCUT (04:22)
[2024-01-26 06:00] VITALS: BMI 26.7
[2024-01-26 06:22] LABS: Glucose Point of Care 106 mg/dL (70-110)
[2024-01-26 07:52] LABS: Basophils % 0.2 %; Eosinophils # 0.1 10^3/uL (0.0-0.8); Eosinophils % 2.3 %; Hematocrit 40.8 % (36-47); Lymphocytes # 0.8 10^3/uL (0.8-4.8); Lymphocytes % 14.4 %; Mean Corpuscular HGB Conc 31.9 g/dL (30-55); Mean Corpuscular Hemoglobin 30.2 pg (27-33); Mean Corpuscular Volume 94.7 fl (85-98); Mean Platelet Volume 10.3 fL (7.4-10.4); Monocytes # 0.5 10^3/uL (0.2-0.9); Monocytes % 9.9 %; Neutrophils # 3.78 10^3/uL (1.8-7.7); Neutrophils % 71.9 %; Nucleated Red Blood Cells % 0 %; Platelet Count 180 10^3/cmm (157-399); Red Blood Count 4.31 10^6/uL (3.85-5.65); Red Cell Distribution Width 12.9 % (12.1-15.1); White Blood Count 5.26 10^3/uL (3.29-11.43)
[2024-01-26 08:00] VITALS: BP 147/65; PULSE 87; RESP 16; TEMP 36.5; O2SAT 96
[2024-01-26 08:17] LABS: Alanine Aminotransferase 14 U/L (0-33); Albumin Level 3.3 g/dL (3.5-5.2); Alkaline Phosphatase 98 U/L (35-105); Anion Gap 15.3 (5-19); Aspartate Amino Transferase 16 U/L (0-32); Blood Urea Nitrogen 26 mg/dL (8-23); Carbon Dioxide 27 mmol/L (22-29); Chloride 106 mmol/L (98-107); Creatinine Clr Calc Pharmacy 54.2862; Globulin 2.7 g/dL (1.3-4.6); Glucose 114 mg/dL (65-115); Osmolality Calculated 306 mOsm/kg (285-295); Potassium 3.3 mmol/L (3.5-5.1); Sodium 145 mmol/L (136-145); Total Bilirubin 0.6 mg/dL (0.15-1.2)
[2024-01-26] MEDS: sodium chloride 0.9% 1,000 ML 75 ML IV (08:40)
[2024-01-26] MEDS: amlodipine 5 mg Tablet PO (08:40)
[2024-01-26] MEDS: nystatin powder 30 gm Btl 1 APPLIC TOPICAL (08:41)
[2024-01-26 08:59] VITALS: BP 115/64; BP 125/80; BP 97/61; PULSE 86; PULSE 87
--- NOTE | 2024-01-26 10:11 | PC.SOCIAL ---
IMM Update pg 2 of IMM Updated and reviewed w/ patient. Copy provided and copy dated, initialed and placed in chart.
--- NOTE | 2024-01-26 10:43 | PC.CHAP ---
Pastoral Care Encounter/Spiritual Assessment Type of Contact [] Declined [employer] visit [] Patient/Family/Request visit [] Outpatient visit [] Follow-up visit [] Physician referral [] Code/Alert [x] Routine visit [] Staff referral [] Actively dying [] Patient sleeping [x] Family support [] [] Out of room [] Palliative care [] [] Receiving care in room [] Pre-surgical visit [] Trauma [] Long length of stay [] ICU visit [] Other: Relational/Emotional Strength [] Patient feels connected with others/family/visitors/staff [] Distress [] Loneliness/isolation [] Abandonment Spirituality of Patient [x] Person of [place]ena [] Attends Christianity of their [place] [x] Believes in Prayer [] Reads Bible or Shinto materials [] There are Spiritual issues 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 [x] Prayer [x] Active listening [] Non-anxious presence [] Spiritual/emotional support [] Crisis/trauma care [] Spiritual counseling [] Bereavement support [] Provided bereavement packet [x] Provided Bible/devotional materials [] Provided toy/stuffed animal, coloring book to patient or family member [] Provided Communion [] Anointing/[place] [] Salvation [x] Completed spiritual assessment [] Other: Impact on Illness or Injury [] Angry [] Fearful [] Anxious [] Often cries [] Exhaustion [] Unable to work [] Unable to attend quaker [] Unable to walk/stand [] Unable to read [] Unable to drive [] Unable to eat/drink [] Unable to sleep [] Unable to be with family [] Patient intubated [] Other: Summary Time spent with patient 10 min
[2024-01-26 10:48] LABS: Glucose Point of Care 238 mg/dL (70-110)
--- NOTE | 2024-01-26 11:12 | PM.DCS ---
Discharge Providers Date of Admission: 01/23/24 15:29 Date of Discharge: January 26, 2024 Attending Provider at Admission: Adolfo Adrian MD Attending Provider at Discharge: Frantz Mas MD Primary Care Provider: Kyle Conrad DO Diagnoses at Discharge Discharge Diagnosis (1) Fall: Status: Acute (2) Pre-syncope: Status: Acute (3) Acute dehydration: Status: Acute (4) Acute cystitis: Status: Acute (5) Acute kidney injury: Status: Acute (6) Type 2 diabetes mellitus: Status: Acute (7) Cognitive decline: Status: Acute Reason for Visit Reason for Visit: Keeps falling down Hospital Course Hospital Course This is a 73-year-old female with a past medical history of hypertension not on any antihypertensive medication, due to hypotension and presyncope, type 2 diabetes mellitus, who presents [facility] due to recurrent episodes of a fall, confusion Patient was admitted to [facility] for fall, confusion Recurrent fall, likely combination of dehydration, UTI, orthostatic hypotension For urinary tract infection, UA consistent for UTI, received IV antibiotics, discharged on cefdinir Cellulitis of the periumbilical region, received IV antibiotics as inpatient, discharged on p.o. antibiotics as above For her orthostatic hypotension , patient's orthostatic hypotension has persisted in the hospital despite fluid therapy, discussed in detail with patient as certainly this is a difficult situation as she has episodes of hypertension throughout the day, and episodes of orthostatic hypotension with changing position. Discussed for now hold off on blood pressure medications for now. Follow-up with primary care provider as outpatient for blood pressure check. For her orthostatic hypotension, patient will have to ambulate with care and change position with care, as she has a high risk of falls and morbidity and mortality associated with her orthostatic hypotension. Patient and son voiced understanding, all questions answered, follow-up with primary care, can consider compression stockings, order placed for wheeled walker. Patient also was found to have Acute biconcave L1 compression fracture by 30% no retropulsed no cord compression, likely related to fall, no complaints of back pain, continue to monitor as outpatient Physical Exam Const: COMMON NORMALS: no acute distress and patient oriented x3 Resp: COMMON NORMALS: normal respiratory effort, No retractions, No use of accessory muscles and clear to auscultation bilaterally AUSCULTATION: clear to auscultation bilaterally Cardio: COMMON NORMALS: regular rate, regular rhythm, S1 normal heart sound present and S2 normal heart sound present RATE: regular rate RHYTHM: regular rhythm HEART SOUNDS: S1 normal heart sound present and S2 normal heart sound present GI: COMMON NORMALS: Normal to inspection, nondistended, normoactive bowel sounds present and non-tender Extremity: COMMON NORMALS: no pedal edema Neuro: COMMON NORMALS: patient oriented x3 Psych: COMMON NORMALS: mental status grossly normal Urinary Catheter Management: Mckinley: Cath Placed During This Visit: yes, but has since been removed by the nurse Reason for Continuing Indwelling Catheter: Other Urinary Catheter Date of Insertion: 01/23/24 Date Urinary Catheter Removed: 01/25/24 Time Urinary Catheter Discontinued: 12:27 Discharge Data Studies Completed and Pending Completed Studies During Hospitalization Category Date Time Status CT abdomen pelvis wo con [id number] Stat Cat Scan 01/23/24 13:[address] head wo con* [id number] Stat Cat Scan 01/23/24 11:[address] lumbar spine wo con* [id number] Stat Cat Scan 01/23/24 11:39 Completed XR chest 1V portable [id number] Stat Exams 01/23/24 11:39 Completed Pending at discharge Category Date Time Status Blood Culture Stat Lab 01/23/24 15:52 Results C.Diff PCR (Lab) Routine Lab 01/23/24 15:20 Uncollected Immunochemical Fecal OCB Routine Lab 01/23/24 15:20 Uncollected Lactoferrin Routine Lab 01/23/24 15:20 Uncollected OVA and Parasites, Conc and PE Routine Lab 01/23/24 15:20 Uncollected Salmonella / Shigella / Campy Routine Lab 01/23/24 15:20 Uncollected Radiology Impressions Chest X-Ray 01/23/24 11:39 Impression: Atherosclerosis. Head CT 01/23/24 11:39 IMPRESSION: 1. No acute intracranial hemorrhage or edema. 2. Stable volume loss and atrophy and small vessel disease. Lumbar Spine CT 01/23/24 11:39 IMPRESSION: 1. Acute biconcave L1 compression fracture by 30%. No retropulsion. No cord compression. 2. Multilevel areas of mild to moderate stenosis and facet joint arthritis. 3. No additional fractures. Abdomen/Pelvis CT 01/23/24 13:52 IMPRESSION: 1. No acute abdominal or pelvic abnormalities. 2. No renal obstruction. 3. 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 4. Atherosclerosis aorta, mild. 5. No ascites or adenopathy. 6. Indeterminate LEFT renal masses. Cannot be further characterized without IV contrast. Laboratory Results WBC 5.26 10^3/uL (3.29-11.43) 01/26/24 07:11 RBC 4.31 10^6/uL (3.85-5.65) 01/26/24 07:11 Hgb 13.00 g/dL (11.27-16.99) 01/26/24 07:11 Hct 40.8 % (36-47) 01/26/24 07:11 MCV 94.7 fl (85-98) 01/26/24 07:11 MCH 30.2 pg (27-33) 01/26/24 07:11 MCHC 31.9 g/dL (30-55) 01/26/24 07:11 RDW 12.9 % (12.1-15.1) 01/26/24 07:11 Plt Count 180 10^3/cmm (157-399) 01/26/24 07:11 MPV 10.3 fL (7.4-10.4) 01/26/24 07:11 Neut % (Auto) 71.9 % 01/26/24 07:11 Lymph % (Auto) 14.4 % 01/26/24 07:11 [place] % (Auto) 9.9 % 01/26/24 07:11 Eos % (Auto) 2.3 % 01/26/24 07:11 Baso % (Auto) 0.2 % 01/26/24 07:11 Neut # (Auto) 3.78 10^3/uL (1.8-7.7) 01/26/24 07:11 Lymph # (Auto) 0.8 10^3/uL (0.8-4.8) 01/26/24 07:11 [place] # (Auto) 0.5 10^3/uL (0.2-0.9) 01/26/24 07:11 Eos # (Auto) 0.1 10^3/uL (0.0-0.8) 01/26/24 07:11 Baso # (Auto) 0.0 10^3/uL (0.0-0.1) 01/26/24 07:11 Nucleated RBC % (auto) 0 % 01/26/24 07:11 Nucleated RBCs # 0.0 /100WBC 01/26/24 07:11 Sodium 145 mmol/L (136-145) 01/26/24 07:11 Potassium 3.3 mmol/L (3.5-5.1) L 01/26/24 07:11 Chloride 106 mmol/L (98-107) 01/26/24 07:11 Carbon Dioxide 27 mmol/L (22-29) 01/26/24 07:11 Anion Gap 15.3 (5-19) 01/26/24 07:11 BUN 26 mg/dL (8-23) H 01/26/24 07:11 Creatinine 0.6 mg/dL (0.5-0.9) 01/26/24 07:11 GFR Calculation Not Reportable 01/26/24 07:11 Glucose 114 mg/dL (65-115) 01/26/24 07:11 POC Glucose 238 mg/dL (70-110) H 01/26/24 10:39 Estimat Average Glucose 148 01/24/24 04:46 Hemoglobin A1c 6.8 % (4.0-6.0) H 01/24/24 04:46 Calculated Osmolality 306 mOsm/kg (285-295) H 01/26/24 07:11 Lactic Acid 1.3 mmol/L (0.5-2.2) 01/23/24 15:50 Calcium 8.0 mg/dL (8.5-10.5) L 01/26/24 07:11 Phosphorus 2.9 mg/dL (2.5-4.5) 01/24/24 04:46 Magnesium 2.3 mg/dL (1.7-2.3) 01/24/24 04:46 Iron 109 ug/dL (37-145) 01/23/24 11:49 TIBC 322 mcg/dl 01/23/24 11:49 % Saturation 33.8 % (20-50) 01/23/24 11:49 Unsat Iron Binding 213 ug/dL (112-347) 01/23/24 11:49 Total Bilirubin 0.6 mg/dL (0.15-1.2) 01/26/24 07:11 AST 16 U/L (0-32) 01/26/24 07:11 ALT 14 U/L (0-33) 01/26/24 07:11 Alkaline Phosphatase 98 U/L (35-105) 01/26/24 07:11 NT-Pro-B Natriuret Pep 351 pg/mL (0-450) 01/23/24 11:49 Total Protein 6.0 g/dL (6.6-8.7) L 01/26/24 07:11 Albumin 3.3 g/dL (3.5-5.2) L 01/26/24 07:11 Globulin 2.7 g/dL (1.3-4.6) 01/26/24 07:11 Triglycerides 208 mg/dL (0-150) H 01/24/24 04:46 Triglycerides Cancelled 01/24/24 04:46 Cholesterol 171 mg/dL (0-200) 01/24/24 04:46 Cholesterol Cancelled 01/24/24 04:46 LDL Cholesterol, Calc 67 mg/dL (50-129) 01/24/24 04:46 LDL Cholesterol, Calc Cancelled 01/24/24 04:46 HDL Cholesterol 62 mg/dL (60-100) 01/24/24 04:46 HDL Cholesterol Cancelled 01/24/24 04:46 LDL/HDL Ratio 1.08 RATIO (0.00-3.22) 01/24/24 04:46 LDL/HDL Ratio Cancelled 01/24/24 04:46 Cholesterol/HDL Ratio 2.76 mg/dL (0.0-4.40) 01/24/24 04:46 Cholesterol/HDL Ratio Cancelled 01/24/24 04:46 Vitamin B12 364 pg/mL (232-1245) 01/23/24 11:49 Folate 15.5 ng/mL (4.8-37.3) 01/24/24 04:46 Procalcitonin 0.11 ng/mL (0-0.5) 01/24/24 04:46 Procalcitonin Cancelled 01/24/24 04:46 TSH 1.37 uIU/mL (0.27-4.20) 01/23/24 11:49 Random Cortisol 25.55 ug/dL (2.47-19.5) H 01/24/24 04:46 Urine Color Yellow (Yellow) 01/23/24 13:01 Urine Appearance Cloudy (CLEAR) A 01/23/24 13:01 Urine pH 5.0 (5-7) 01/23/24 13:01 Ur Specific Colt 1.023 (1.005-1.030) 01/23/24 13:01 Urine Protein 1+ (Negative) A 01/23/24 13:01 Urine Glucose (UA) 3+ (Normal) H 01/23/24 13:01 Urine Ketones 1+ (Negative) H 01/23/24 13:01 Urine Blood Negative (Negative) 01/23/24 13:01 Urine Nitrate Negative (Negative) 01/23/24 13:01 Urine Bilirubin Negative (Negative) 01/23/24 13:01 Urine Urobilinogen 1.0 mg/dL (Negative) 01/23/24 13:01 Ur Leukocyte Esterase Trace (Negative) A 01/23/24 13:01 Urine RBC 0-2 /hpf (0-2) 01/23/24 13:01 Urine WBC 21-50 /hpf (0-5) H 01/23/24 13:01 Ur Eosinophil Smear 0 (0-0) 01/23/24 13:01 Ur Squamous Epith Cells 6-10 /hpf (0-5) 01/23/24 13:01 Amorphous Sediment Not Reportable 01/23/24 13:01 Urine Bacteria 4+ /hpf (NONE) H 01/23/24 13:01 Hyaline Casts 18.18 /lpf 01/23/24 13:01 Urine Mucus Trace /hpf 01/23/24 13:01 Urine Eosinophils No eosinophils seen 01/23/24 13:01 Ur Random Sodium 18 mmol/L 01/23/24 13:01 Ur Random Potassium 44 mmol/L 01/23/24 13:01 Ur Random Chloride 18 mmol/L 01/23/24 13:01 Urine Creatinine 136 mg/dL (28-217) 01/23/24 13:01 Nasal MRSA (PCR) Not detected (Not Detecte) 01/23/24 16:30 Urine Opiates Screen Negative ng/mL (Negative) 01/23/24 13:01 Ur Barbiturates Screen Negative ng/mL (Negative) 01/23/24 13:01 Ur Phencyclidine Scrn Negative ng/mL (Negative) 01/23/24 13:01 Ur Amphetamines Screen Negative ng/mL (Negative) 01/23/24 13:01 U Benzodiazepines Scrn Negative ng/mL (Negative) 01/23/24 13:01 Urine Cocaine Screen Negative ng/mL (Negative) 01/23/24 13:01 U Marijuana (THC) Screen Negative ng/mL (Negative) 01/23/24 13:01 Serum Ketones Negative (Negative) 01/23/24 11:49 Vitals Last Vital Signs Temp 97.7 F 01/26/24 08:00 Pulse 86 01/26/24 08:59 Resp 16 01/26/24 08:00 BP 125/80 01/26/24 08:59 Pulse Ox 96 01/26/24 08:00 O2 Del Method Room Air 01/26/24 08:00 Discharge Plan Discharge Patient Disposition: Home Condition: Stable Prescriptions: New cefdinir 300 mg capsule 300 mg PO BID 5 Days Qty: 10 0RF Continued atorvastatin 20 mg tablet 20 mg PO QPM glimepiride 2 mg tablet 2 mg PO DAILY metformin 1,000 mg tablet 1,000 mg PO BID dapagliflozin propanediol [Farxiga] 10 mg tablet 10 mg PO DAILY Discharge Orders: Discharge Order (Routine); Ordered 01/26/24 Ordered By: Frantz Mas Other Ambulatory Orders: DME: Walker (Order) Location: None Selected Ordered By: Frantz Mas Referrals: Kyle Conrad DO [Primary Care Provider] - 02/02/24 10:20 am Discharge Diet: Cardiac Discharge Activity: Resume usual activity Patient Instructions: Cefdinir (By mouth), Syncope in Older Adults (DC), Opioid Safety Activity Restrictions/Additional Instructions: -You have vasovagal syncope, you have a high risk of falls especially when changing position, such as when sitting up -Please ambulate with care, sit up with care -Would recommend when getting up out of bed, or getting up from a seated position to use a walker or giving yourself some time to help equilibrate your self, due to high risk of falls -Monitor for back pain if so,L1 compression fracture, follow-up with primary care Discharge Attestations Time Spent in Discharge Care*: greater than 30 min Quality Metrics Clinical Quality Measures [ No reported AMI, CVA or VTE this stay] Coding Level of Care Code 96174 Total time (in minutes) for Discharge: 45 Diagnoses Fall W19.XXXA Pre-syncope R55 Acute dehydration E86.0 Acute cystitis N30.00 Acute kidney injury N17.9 Type 2 diabetes mellitus E11.9 Cognitive decline R41.89
[2024-01-26 12:21] VITALS: BP 125/80; PULSE 86; RESP 16; TEMP 36.5; O2SAT 96
== END 2024-01-26 11:45 | disposition home or self-care (01) | DRG 683 ==
LOC: ER 13:57 → MEDSURG 15:29
PROVIDERS: Admitting Provider Student in an Organized Health Care Education/Training Program; Emergency Provider Emergency Medicine; PCP Electrodiagnostic Medicine; Visit Provider Family Medicine
DX: N17.9 Acute kidney failure, unspecified (principal); E87.20 Acidosis, unspecified; S32.018A Other fracture of first lumbar vertebra, initial encounter for closed fracture; N39.0 Urinary tract infection, site not specified; L03.316 Cellulitis of umbilicus; E86.0 Dehydration; I10 Essential (primary) hypertension; E11.65 Type 2 diabetes mellitus with hyperglycemia; R29.6 Repeated falls; I95.1 Orthostatic hypotension; R41.81 Age-related cognitive decline; W18.30XA Fall on same level, unspecified, initial encounter; Z79.84 Long term (current) use of oral hypoglycemic drugs; Z87.891 Personal history of nicotine dependence
CPT/HCPCS: 36415; 36416; 51702; 70450; 71045; 72131; 74176; 80048; 80053; 80061; 80306; 81001; 82009; 82436; 82533; 82570; 82607; 82746; 82962; 83036; 83540; 83550; 83605; 83735; 83880; 84100; 84133; 84145; 84300; 84443; 85025; 85999; 86403; 87040; 87077; 87086; 87186; 93005; 94664; 96372; 96374; 97110; 97116; 97162; 97166; 99285; J0696; J1644; J1815; J2470; J2543; J7030

== ENCOUNTER 2024-02-17 14:30 | Outpatient (CLI) | payer MEDICARE, MEDICAID, SELFPAY ==
--- NOTE | 2024-02-17 15:04 | XR_ITS ---
WS: [id number] SCREENING DEXA SCAN [employer] CLINICAL INFORMATION: osteoporosis COMPARISON: 2019 FINDINGS: The L1-L4 bone mineral density measures 1.177 g/cm2. This corresponds to a T score score of 0.0 and Z score of 1.5. Left femoral neck bone mineral density measures 0.821 g/cm2. This corresponds to a T score of -1.5 an d Z score of 0.1. Right femoral neck bone mineral density measures 0.720 g/cm2. This corresponds to a T score -2.3of an d Z score of -0.7. Mean femoral neck bone mineral density measures 0.771 g/cm2. This corresponds to a T score of -1.9 an d Z score of -0.3. XR/XR DEXA axial skeleton* 58099 IMPRESSION: Normal bone mineralization lumbar spine. Osteopenia femoral necks. Patient's FRAX calculated 10 year probability for major osteoporotic fracture i s 15.8% and osteoporotic hip fracture is 4.8%. Bone mineral density lumbar spine increased 13.5% Bone mineral density femoral necks decreased -3.7%
== END 2024-02-17 14:31 | disposition home or self-care (01) ==
PROVIDERS: PCP Electrodiagnostic Medicine; Visit Provider Electrodiagnostic Medicine
DX: Z13.820 Encounter for screening for osteoporosis (principal); Z78.0 Asymptomatic menopausal state; M85.80 Other specified disorders of bone density and structure, unspecified site
CPT/HCPCS: 77080